=== PATIENT | male | born 1945 | race Caucasian/White ===

== ENCOUNTER 2021-03-08 07:33 | Observation (INO) | payer MEDICARE, OTHER ==
[~2021-03-08] VITALS: Ht 177.8 cm; Wt 117.9 kg
[2021-03-08] VITALS (10 sets, daily range): BP systolic 106–154; BP diastolic 56–80
[~2021-03-08 07:33] MED LIST: ADULT LOW DOSE81 MG PO; FLOMAX0.4 MG PO; IBUPROFEN 200200 M1 PO; LASIX 20 MG TAB20 MG PO; ONE-DAILY MULT1 EAC1 PO; SIMVASTATIN80 MG PO; TOPROL XL50 MG PO; VESICARE 5 MG TA5 M1 PO; VITAMIN B-6100 MG PO
[2021-03-08 08:31] LABS: HEMATOCRIT 37.2 % (42.0-52.0); HEMOGLOBIN 12.7 gm/dL (14.0-18.0); MCH 31.9 pg (26.0-34.0); MCV 93.7 fL (80.0-100.0); MPV 7.7 fl. (7.2-11.1); RBC 3.97 mil/uL (4.50-6.00); RDW-CV 13.6 % (10.5-14.5)
[2021-03-08 08:33] LABS: PROTIME 10.9 Seconds (9.20-11.50)
[2021-03-08 08:57] LABS: ALBUMIN 3.4 g/dL (3.4-5.0); ALKALINE PHOSPHATASE 94 U/L (46-116); ANION GAP 9 mmol/L (7-16); BUN 14 mg/dL (7-18); CALCIUM 8.6 mg/dL (8.5-10.1); CHLORIDE 106 mmol/L (98-107); CHOLESTEROL 95 mg/dL (<200); CO2 28 mmol/L (21-32); CREATININE 1.1 mg/dL (0.6-1.3); GLUCOSE 147 mg/dL (70-99); HDL CHOLESTEROL 39 mg/dL (>40); LDL CHOLESTEROL 40 mg/dL (<100); POTASSIUM 4.1 mmol/L (3.5-5.1); SGOT 25 U/L (15-37); SGPT 17 U/L (30-65); SODIUM 143 mmol/L (136-145); TC:HDL 2.4 Ratio (Not establshd); TOTAL BILIRUBIN 0.5 mg/dL (<0.1-1.0); TOTAL PROTEIN 7.1 g/dL (6.4-8.2); TRIGLYCERIDE 84 mg/dL (<150); VLDL 17 mg/dL (<40)
[2021-03-08 08:58] LABS: SERUM ASSESSMENT Clear
--- NOTE | 2021-03-08 17:09 | EKG ---
[place] [address] ELECTROCARDIOGRAM REPORT Name: BOBKOBE Room: [address] M.R.#: [id number] Admission: 03/08/21 Attend Phys: Tiffany Anton Discharge: Date of : 41 Date of Service: 03/08/21819 Report #: [id number] THIS REPORT FOR: //name// 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 : 1945 Requested By: Ford Whitmore Order Number: [id number] Yelena MD: Ford Whitmore Measurements Intervals [place] Rate: 64 P: 37 KS: 301 QRS: -31 QRSD: 100 T: 21 QT: 429 QTc: 443 Interpretive Statements Sinus rhythm Prolonged KS interval Left axis deviation Borderline low voltage, extremity leads No previous ECG available for comparison Electronically Signed On 03-08-2021 17:09:12 CDT by Ford Whitmore [email or web address] <ELECTRONICALLY SIGNED> By: Ford Whitmore MD, [facility] 03/08/21 1709 9 9 Ford Whitmore MD, [facility] /EPI
--- NOTE | 2021-03-08 17:10 | EKG ---
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 : 1945 Requested By: Ford Whitmore Order Number: [id number] Yelena MD: Ford Whitmore Measurements Intervals [place] Rate: 59 P: 65 SD: 284 QRS: -10 QRSD: 107 T: 38 QT: 456 QTc: 452 Interpretive Statements Sinus rhythm Prolonged SD interval Low voltage, extremity leads Baseline wander in lead(s) V2 Compared to ECG 03/08/2021 08:20:56 Left-axis deviation no longer present Electronically Signed On 03-08-2021 17:10:15 CDT by Ford Whitmore [email or web address] <ELECTRONICALLY SIGNED> By: Ford Whitmore MD, [facility] 03/08/21 1710 1141 1141 Ford Whitmore MD, FAC /EPI
--- NOTE | 2021-03-08 17:20 | 2DMMODE ---
[place] [address] 2 D/M-MODE ECHOCARDIOGRAM Name: KOBE ROJAS Room: [address] [place]#: [id number] Admission: 03/08/21 Attend Phys: Tiffany Anton Discharge: Date of : 41 Date of Service: 03/08/21 1719 Report #: [id number] THIS REPORT FOR: cc: GALILEA CONNOR MD Physician not on staff Ford Whitmore MD [facility] ~ APPROVED REPORT Study performed: 03/08/2021 15:03:29 EXAM: Comprehensive 2D, Doppler, and color-flow Echocardiogram Patient Location: In-Patient Room #: [facility] Status: routine BSA: 2.33 HR: 61 bpm BP: 131/76 mmHg Rhythm: NSR Other Information Study Quality: Good Indications assess valves 2D Dimensions IVSd: 10.73 (7-11mm) LVOT Diam: 22.89 (18-24mm) LVDd: 58.27 mm PWd: 8.32 (7-11mm) LVDs: 34.01 (25-40mm) Aortic Root: 36.06 mm Aortic Valve AoV Peak Xander.: 2.93 m/s AO Peak Gr.: 34.32 mmHg LVOT Max P.68 mmHg AO Mean Gr.: 21.35 mmHg LVOT Mean P.89 mmHg LVOT Max V: 0.65 m/s AO V2 VTI: 64.58 cm LVOT Mean V: 0.44 m/s SUNG (VTI): 1.06 cm2 LVOT V1 VTI: 16.67 cm Mitral Valve E/A Ratio: 0.83 MV Decel. Time: 286.18 ms MV E Max Xander.: 0.62 m/[place] [address] 2 D/M-MODE ECHOCARDIOGRAM Name: RALEIGHKOBE Room: [address] Archana#: [id number] Admission: 03/08/21 Attend Phys: Tiffany Anton Discharge: Date of : 41 Date of Service: 03/08/21 1719 Report #: [id number] PHT: 82.99 ms MVA (PHT): 2.65 cm2 Pulmonary Valve PV Peak Xander.: 1.04 m/s PV Peak Gr.: 4.32 mmHg Left Ventricle The left ventricle is normal size. There is normal LV segmental wall motion. There is normal left ventricular wall thickness. Left ventricular systolic function is normal. The left ventricular ejection fraction is within the normal range. LVEF is 55-60%. Grade I - abnormal relaxation pattern. Right Ventricle The right ventricle is normal size. The right ventricular systolic function is normal. Atria The left atrium size is normal. The right atrium size is normal. Aortic Valve Moderate aortic valve sclerosis. No aortic regurgitation is present. Moderate aortic stenosis. Peak aortic valve gradient is _37___mmHg. Mitral Valve The mitral valve is normal in structure. There is no mitral valve regurgitation noted. No evidence of mitral valve stenosis. Tricuspid Valve The tricuspid valve is normal in structure. There is no tricuspid valve regurgitation noted. Pulmonic Valve The pulmonary valve is normal in structure. There is no pulmonic valvular regurgitation. Great Vessels The aortic root is normal in size. IVC is normal in size and collapses >50% with inspiration. Pericardium There is no pericardial effusion. <Conclusion> [place] [address] 2 D/M-MODE ECHOCARDIOGRAM Name: RALEIGHKOBE Room: [address] [place]#: [id number] Admission: 03/08/21 Attend Phys: Tiffany Anton Discharge: Date of : 41 Date of Service: 03/08/21 1719 Report #: [id number] The left ventricle is normal size. There is normal left ventricular wall thickness. Left ventricular systolic function is normal. The left ventricular ejection fraction is within the normal range. LVEF is 55-60%. Grade I - abnormal relaxation pattern. The right ventricle is normal size. The left atrium size is normal. Moderate aortic valve sclerosis. No aortic regurgitation is present. Moderate aortic stenosis. Peak aortic valve gradient is _37___mmHg. The mitral valve is normal in structure. The tricuspid valve is normal in structure. IVC is normal in size and collapses >50% with inspiration. There is no pericardial effusion. There is normal LV segmental wall motion. <ELECTRONICALLY SIGNED> By: Ford Whitmore MD, FACC 03/08/211718 18 18 Ford Whitmore MD, FACC /INF
[2021-03-09 00:09] VITALS: BP 130/58
[2021-03-09 04:11] LABS: HEMATOCRIT 35.7 % (42.0-52.0); MCH 31.5 pg (26.0-34.0); MCHC 33.5 g/dL (28.0-37.0); MCV 94.1 fL (80.0-100.0); MPV 7.7 fl. (7.2-11.1); RBC 3.8 mil/uL (4.50-6.00); RDW-CV 13.6 % (10.5-14.5)
[2021-03-09 04:16] VITALS: BP 124/63
[2021-03-09 04:48] LABS: CALCIUM 8.3 mg/dL (8.5-10.1); CREATININE 0.9 mg/dL (0.6-1.3); POTASSIUM 3.8 mmol/L (3.5-5.1); TOTAL BILIRUBIN 0.4 mg/dL (<0.1-1.0); TOTAL PROTEIN 6.4 g/dL (6.4-8.2)
[2021-03-09 06:12] VITALS: BP 167/76
--- NOTE | 2021-03-09 06:57 | NUR ---
PT IS ABLE TO COMMUNICATE HIS NEEDS TO STAFF EFFECTIVELY. HE HAS DENIED THE NEED FOR PAIN MEDICATION UP TO THIS TIME. HE HAS ALSO DENIED ANY CHEST PAIN OVERNIGHT. RT GROIN CATH SITE DRESSING HAS BEEN C/D/I UP TO THIS TIME. LIKELY DISCHARGE TODAY. PT OF DR. MENDOZA.
[2021-03-09 07:48] VITALS: BP 126/61
[2021-03-09] MEDS ORDERED: CLOPIDOGREL75 MG PO (09:27)
[2021-03-09 09:51] VITALS: BP 126/61
--- NOTE | 2021-03-09 10:37 | NUR ---
PATIENT DISCHARGED IN STABLE CONDITION. VERBALIZED UNDERSTANDING OF INSTRUCTIONS AND ANGIOPLASTY SITE CARE.
--- NOTE | 2021-03-09 12:00 | CARD ---
[address] [address] CARDIAC CATH REPORT Name: KOBE HINKLE Room: [address] Sera M.RShade#: [id number] Admission: 03/08/21 Attend Phys: Ford Whitmore MD, Discharge: 03/09/21 Date of : 41 Report #: [id number] THIS REPORT FOR: cc: GALILEA CONNOR MD Physician not on staff Ford Whitmore MD [facility] ~ APPROVED REPORT Study performed: 03/08/2021 09:02:34 Patient Details Patient Status: Out-Patient Room #: The patient is a 75 year-old male Event Personnel Ford Whitmore Strategic Planning Director, Jennifer Swesnon RN RN, Miguel Ángel Acosta LUMBER LOADER Scrub, Willow Hinkle RTR Monitor Procedures Performed Art Access - R femoral artery Left Heart Cath w/or w/o Coronaries Supravalvular Aortography Injection PTCA Single Vessel LAD Hemostasis w/ Angioseal Indication Unstable angina Risk Factors Hypercholesterolemia, Hypertension Previous Procedures/Diagnoses Previous PCI Admission/Lab Medications/Medications given during procedure Lidocaine Subcut 14 ml, Oxygen Nasal cannula 2 l per min, 0.9% Sodium Chloride IV 75 ml per hr, 0.9% Sodium Chloride IV 125 ml per hr, Angiomax IV 18 ml, Angiomax Drip IV 41.4 ml per hr, Aspirin PO 162 mg, Plavix PO 600 mg Procedure Narrative The patient was brought electively to the Cardiac Catheterization Laboratory and was prepped and draped in a sterile manner. The right femoral was infiltrated with 2% Lidocaine subcutaneous anesthesia. IV conscious sedation was used [place] [address] CARDIAC CATH REPORT Name: KOBE HINKLE Room: [address] [place]#: [id number] Admission: 03/08/21 Attend Phys: Ford Whitmore MD, Discharge: 03/09/21 Date of : 41 Report #: [id number] monitoring and was performed in the presence of a registered nurse who was an independent trained observer other than the physician performing the procedure. A [place] 6 FR sheath was inserted into the right femoral artery. Coronary angiography was performed using coronary diagnostic catheters. The right coronary system was accessed and visualized with a Diagnostic 6 Fr JR 4 catheter. The left coronary system was accessed and visualized with a Diagnostic 6 Fr JL 4 catheter. The left ventricle was accessed and visualized with a Diagnostic 6 Fr Pigtail catheter. Left ventricular/Aortic Valve gradient assessed via catheter pullback. Left ventriculogram was performed in KEENAN projection. An aortogram of the ascending aorta was performed. Pre-demployment femoral angiogram was performed . Closure device was deployed with a Fr Angioseal STS 6Fr. The patient tolerated the procedure well and there were no complications associated with the procedure. There was no hematoma. Intraoperative Conscious Sedation Sedation start time: 916 Case end Time: 110 Fentanyl 50 mcg Versed 2 mg Fluoro Time: 33.3 minutes Dose: DAP 979920 cGycm2 5872 mGy Contrast Type and Amount: Visipaque 440 ml Diagnostic Cath Left Main 0% narrowing LAD Widely patent proximal and mid LAD stents with 80% mid LAD stenosis; there was marked proximal tortuosity and calcification Circumflex Marked tortuosity with 30% mid vessel narrowing Right Coronary Large dominant vessel with 30% proximal and 40% mid vessel narrowing Left Ventriculography The left ventricle is normal in size with normal contractility. The left ventricular ejection fraction is estimated to be 60%. Left ventricular wall motion abnormalities are not present. There is no mitral insufficiency. Ascending aortography defined thickened aortic cusps with moderately decreased mobility; there was mild dilatation of the ascending aorta and a trace of aortic insufficiency Hemodynamics The aortic pressure is 111/56 mmHg with a mean of 75 [place] [address] CARDIAC CATH REPORT Name: KOBE HINKLE Room: [address] Archana#: [id number] Admission: 03/08/21 Attend Phys: Ford Whitmore MD, Discharge: 03/09/21 Date of : 41 Report #: [id number] ventricular pressure is 140/8 mmHg with a mean of mmHg. The left ventricular end diastolic pressure is 13 mmHg. Pullback from the left ventricle to the aorta revealed a 35 mm gradient across the aortic valve. PCI Technique Lesion Anticoagulation was achieved with Angiomax Drip. Patient was preloaded with Angiomax IV 18 ml. Percutaneous coronary intervention was performed on the mid left anterior descending artery segment. The lesion stenosis prior to intervention was 80% with KACI 3 flow. A 6FR XB 3.5 100CM Guide Catheter was used to engage the left ostium. A IG: BMW 190cm Interventional Guidewire was used to cross the lesion. BALLOON DILATION A Balloon catheter Euphora SC 2.25x12 was inserted and inflated up to 14.00atm for 13seconds. Additional Inflation: 15.00atm for 10seconds. Additional Inflation: 15.00atm for 8seconds. Final angiography reveals 20 % stenosis with KACI 3 flow. COMMENTS The PCI was technically complex by virtue of marked proximal LAD tortuosity and calcification requiring use of guideliner mother-daughter guide system for dilatation of the mid LAD. I was unable to advance a stent to the dilated portion of the LAD. Conclusion 1. Significant coronary artery disease characterized by the following: A 30% proximal LAD narrowing with widely patent proximal and mid LAD stents with 80% mid LAD stenosis B 30% narrowing the midportion the nondominant circumflex C 30% proximal and 40% mid right coronary, this being a large dominant vessel 2. Normal left ventricular systolic function, estimated ejection fraction 60% 3 ascending aortography defined thickened aortic cusps with moderate [facility] [address] [place] [address] CARDIAC CATH REPORT Name: HINKLEKOBE Room: [address] [place]#: [id number] Admission: 03/08/21 Attend Phys: Ford Whitmore MD, Discharge: 03/09/21 Date of : 41 Report #: [id number] reduction in cusp excursion; there is mild dilatation of the proximal ascending aorta and a trace of aortic insufficiency 4. Moderate aortic stenosis with a peak to peak transaortic valvular systolic pressure gradient of 35 mmHg 5. Successful PTCA at the site of 80% mid LAD stenosis with 20% residual narrowing and KACI-3 flow to the distal vessel Recommendations Cardiac Risk Reduction Program Aggressive Medical Therapy Medications Administered Aspirin (any) Clopidogrel Diagnostic Cath Approved by: Ford Whitmore MD Date/Time: 03/09/2021 11:55:27 <ELECTRONICALLY SIGNED> By: Ford Whitmore MD, [facility] 03/09/21 1159 1159 1159Ford Whitmore MD, FACC /INF
--- NOTE | 2021-03-09 15:51 | EKG ---
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 : 1945 Requested By: Ford Whitmore Order Number: [id number] Yelena MD: Ford Whitmore Measurements Intervals [place] Rate: 68 P: [place]: QRS: -2 QRSD: 101 T: 60 QT: 422 QTc: 449 Interpretive Statements Sinus rhythm with first-degree AV block Baseline wander in lead(s) V1 Compared to ECG 03/08/2021 11:41:35 No significant interval change Electronically Signed On 03-09-2021 15:51:31 CDT by Ford Whitmore [email or web address] <ELECTRONICALLY SIGNED> By: Ford Whitmore MD, [facility] 03/09/21 1551 0541 0541 Ford Whitmore MD, [facility] /EPI
--- NOTE | 2021-03-09 16:00 | D ---
[address] [address] DISCHARGE SUMMARY Name: KOBE ROJAS Room: [address] [place]#: [id number] Admission: 03/08/21 Attend Phys: Ford Whitmore MD, Discharge: 03/09/21 Date of : 41 Report #: [id number] THIS REPORT FOR: cc: GALILEA CONNOR MD Physician not on staff Ford Whitmore MD [facility] ~ DATE OF DISCHARGE: 03/09/2021 FINAL DISCHARGE DIAGNOSES: 1. Unstable angina. 2. Coronary artery disease. 3. Status post PCI to the LAD. 4. Hypertension. 5. Aortic stenosis. 6. Bilateral carotid stenoses. 7. Obesity. 8. Hyperlipoproteinemia. PROCEDURES: On 03/08/2021 -- left heart catheterization, left ventriculography, selective coronary arteriography, and PCI with angioplasty of the mid to distal LAD. HOSPITAL COURSE: The patient is a 75-year-old male with a history of coronary artery disease, status post remote PCI to the LAD with 2 drug-eluting stents deployed. Recently, he has noted easy fatigability, shortness of breath and chest discomfort compatible with his prior ischemic syndrome. In that context, I performed cardiac catheterization on 03/08/2021. That study revealed normal LV function, moderate to moderately severe aortic stenosis with a peak gradient across the aortic valve of 35 mmHg and calculated aortic valve area of 1.1 cm2 by echo. The coronaries revealed 80% mid to distal LAD stenosis with 2 widely patent LAD stents. There were 40% and 50% circumflex narrowings and modest right coronary disease. I performed PCI with angioplasty of the mid to distal LAD. I was unable to deploy a stent in the distal region by virtue of marked proximal tortuosity and calcification. The patient did well post-procedurally with a CPK-MB the following morning of 2.6. Cholesterol LDL value was 40 in the context of current statin therapy, which I did not modify. He was discharged home on the following medications: Aspirin 81 mg b.i.d., furosemide 20 mg p.o. p.r.n. lower extremity edema, ibuprofen 200 mg as needed every 4-6 hours for arthritic discomfort, metoprolol succinate 50 mg daily, pyridoxine 100 mg daily, simvastatin 80 mg at bedtime, VESIcare 5 mg daily, tamsulosin 0.4 mg daily, and multivit[place] [address] DISCHARGE SUMMARY Name: KOBE ROJAS Room: [address] [place]#: [id number] Admission: 03/08/21 Attend Phys: Ford Whitmore MD, Discharge: 03/09/21 Date of : 41 Report #: [id number] I will plan to see him in followup on 03/30/2021 at 1020 hours at the [facility] office. We talked about the importance of the aortic valve as well as the PCI to the LAD. My concern is at some point that he may require anatomic intervention. Therefore, the patient is discharged home in satisfactory condition on the above described medications with followup as described above. <ELECTRONICALLY SIGNED> By: Ford Whitmore MD, FACC 03/09/21 1600 0835 [id number] Whitmore MD, FACC /nt
== END 2021-03-09 10:30 | disposition home or self-care (01) ==
LOC: M.CL 07:33 → M.TBA-CV 11:23 → M.2W 14:36
PROVIDERS: ADMIT Internal Medicine; ATTEND Internal Medicine
DX: I25.110 Atherosclerotic heart disease of native coronary artery with unstable angina pectoris (principal); Z20.822 Contact with and (suspected) exposure to COVID-19; I10 Essential (primary) hypertension; I35.0 Nonrheumatic aortic (valve) stenosis; I65.23 Occlusion and stenosis of bilateral carotid arteries; E66.9 Obesity, unspecified; E78.5 Hyperlipidemia, unspecified; Z79.82 Long term (current) use of aspirin; Z79.899 Other long term (current) drug therapy